=== PATIENT | female | born 1985 | race Caucasian/White ===

== ENCOUNTER → 2017-07-25 | Outpatient (CLI) | payer OTHER ==
[~2017-07-25] MED LIST: HYDR-3533 PO; MMW SWISH-SWAL; PENVK500 PO; SUCR1S PO
== END ==
LOC: HPND 08:14
PROVIDERS: ATTEND Obstetrics & Gynecology
DX: O09.33 Supervision of pregnancy with insufficient antenatal care, third trimester (principal); O34.211 Maternal care for low transverse scar from previous cesarean delivery
CPT/HCPCS: 76816

== ENCOUNTER 2017-07-29 23:42 | Emergency (ER) | payer OTHER ==
--- NOTE | 2017-07-30 00:49 | PD ---
HPI Chief Complaint vaginal spotting/ ? lof Date Seen: Jul 30, 2017 Time Seen: 00:33 Travel History International Travel<30 Days: No Contact w/Intl Traveler<30Days: No Known Affected Area: No History of Present Illness HPI pt. is a 32 y/o @ 35 1/7 weeks present w/ c/o vag spotting and ? lof. pt. states earlier this pm pt. had spotting on paper when wipe. also states has some fluid leak and not sure what it is. +FM, no ctxs. Weeks Gestation: 35 Para: 2 : 3 History Past Medical History Medical History: Denies Significant Hx Obstetric History Obstetric History , cd x 2 Past Surgical History Narrative Surgical cd x 2 Family History Family History: Negative Social History Alcohol Use: No Tobacco Use: No Substance Abuse: No Allergies-Medications (Allergen,Severity, Reaction): Coded Allergies: acetaminophen (Unverified Allergy, Unknown, PT STATES THAT SHE DOES NOT KNOW WHY IN HER CHART, 10/09/16) propoxyphene (Unverified Allergy, Unknown, PT STATES THAT SHE DOES NOT KNOW WHY IN HER CHART, 10/09/16) Home Meds Active Scripts Penicillin V Potassium (Penicillin V Potassium) 500 Mg Tab, 500 MG PO QID for 7 Days, TAB Prov:Nitza Stone MD 10/27/15 Hydrocodone/Acetaminophen 5 mg/325 mg (Lortab 5 mg/325 mg) 1 Tab, 1 TAB PO Q6H Y for PAIN, #10 TAB Prov:Nitza Stone MD 10/27/15 Sucralfate (Carafate 1 Gm/10 Ml Udc) 1 Gm/10 Ml Susp, 1 GM PO Q6HR for 5 Days, ML Take with water on an empty stomach. To reduce the potential of adversely affecting the absorption of other drugs, take other drugs 2 hours prior to Sucralfate. Prov:Nitza Stone MD 10/27/15 Lidocaine/Diphenhy/Alum/Mg/Sim (Magic Mouthwash-Diphenhy Formula) Ml, 5-10 ML SWISH-SWAL Q4-6H Y for PAIN GREATER THAN 5 for 3 Days, ML MAGIC MOUTHWASH CONTAINS 1/3 VISCOUS LIDOCAINE,1/3 MAALOX, AND 1/3 BENADRYL. Prov:Nitza Stone MD 10/27/15 Review of Systems Except as stated in HPI: all other systems reviewed are Neg Physical Exam Narrative GENERAL: Well-nourished, well-developed patient. SKIN: Warm and dry. HEAD: Normocephalic and atraumatic. EYES: No scleral icterus. No injection or drainage. ENT: No nasal drainage noted. Mucous membranes pink. Airway patent. NECK: Supple, trachea midline. No JVD. CARDIOVASCULAR: Regular rate and rhythm without murmurs, gallops, or rubs. RESPIRATORY: Breath sounds equal bilaterally. No accessory muscle use. BREASTS: Bilateral exam showed no masses , no retractions, no nipple discharge. ABDOMEN/GI: Abdomen soft, non-tender, bowel sounds present, no rebound, no guarding Gravid GENITOURINARY: External Genitalia: intact and normal in appearance SSE: no blood, nl vagina cervix: closed/long/high Uterine Contractions: none FHT's: Category: 1 Reactive: + Variability: mod EXTREMITIES: No cyanosis or edema. BACK: Nontender without obvious deformity. No CVA tenderness. NEUROLOGICAL: Awake and alert. Motor and sensory grossly within normal limits. Five out of 5 muscle strength in all muscle groups. Normal speech. Data Data Vital Signs Reviewed: Yes Orders Orders Delimer Clear For Discharge (07/30/17 ) [facility] Medical Record Reviewed: Yes Plan pt. w/o bleeding on exam. condition d/w pt. no srom. pt. to be d/c to home. all ? answered. given precautions for return. f/u as sched. Diagnosis Diagnosis: Primary Impression: Vaginal spotting Additional Impression: 35 weeks gestation of Disposition: DISCHARGE HOME Danie Talamantes Jr., MD Jul 30, 2017 00:49
== END 2017-07-30 00:55 | disposition home or self-care (01) ==
LOC: HOBED 23:42
DX: O26.853 Spotting complicating pregnancy, third trimester (principal); Z3A.35 35 weeks gestation of pregnancy
CPT/HCPCS: 59025

== ENCOUNTER 2017-08-26 11:56 | Inpatient (IN) ==
[2017-08-26] MEDS ORDERED: Phenylephrine/NS 1000 MCG/10ML Syringe IV.PUSH ONE (12:00)
[2017-08-26 12:57] LABS: Baso % (Auto) 0.3 % (0.0-2.0); Eos # (Auto) 0.1 th/mm3 (0.0-0.4); Eos % (Auto) 0.8 % (0.0-4.0); Hematocrit 36.4 % (35.0-46.0); Hemoglobin 12.5 gm/dL (11.6-15.3); Lymph # (Auto) 1.3 th/mm3 (1.0-4.8); Lymph % (Auto) 14.5 % (9.0-44.0); Mean Corpuscular HGB Conc 34.3 % (32.0-36.0); Mean Corpuscular Hemoglobin 30.2 pg (27.0-34.0); Mean Corpuscular Volume 87.9 fL (80.0-100.0); Mean Platelet Volume 9.3 fL (7.0-11.0); Mono # (Auto) 0.6 th/mm3 (0.0-0.9); Mono % (Auto) 6.7 % (0.0-8.0); Neut # (Auto) 7.2 th/mm3 (1.8-7.7); Neut % (Auto) 77.7 % (16.0-70.0); Platelet Count 241 th/mm3 (150-450); Red Blood Count 4.14 mil/mm3 (4.00-5.30); Red Cell Distribution Width 14.5 % (11.6-17.2); White Blood Count 9.3 th/mm3 (4.0-11.0)
[2017-08-26 13:45] LABS: Bacteria,Urine Occasional /hpf; Bilirubin,Urine Negative (Negative); Clarity,Urine Hazy (Clear); Color,Urine Yellow (Yellw/Straw); Glucose,Urine (UA) Negative (Negative); Leukocyte Esterase,Urine Small (Negative); Mucus,Urine Few /lpf (Occasional); Nitrite,Urine Negative (Negative); Specific Gravity,Urine 1.023 (1.002-1.035); Squamous Epithelial Cell,Urine 5 /hpf (0-5)
[2017-08-26] MEDS ORDERED: Citric Acid/Sodium Citrate Liq 30 ML UDC ONE (13:46)
[2017-08-26 13:49] LABS: Amphetamine Screen,Urine Neg (Neg); Barbiturate Screen,Urine Neg (Neg); Cannabinoid Screen,Urine Neg (Neg); Cocaine Screen,Urine Neg (Neg); Opiate Screen,Urine Neg (Neg)
[2017-08-26] MEDS ORDERED: Morphine Sulfate PF Inj 5 MG/10 ML Ampul ONE (13:50)
[2017-08-26] MEDS ORDERED: fentaNYL Citrate Inj 250 MCG/5 ML Ampul ONE (13:50)
[2017-08-26] MEDS ORDERED: Simethicone 80 MG Chew Tablet PO PRN (15:22)
[2017-08-26] MEDS ORDERED: Acetaminophen 325 MG Tablet PO PRN (15:22)
--- NOTE | 2017-08-26 15:49 | MP ---
cc: Omkar Rogers MD DATE OF OPERATION: PREOPERATIVE DIAGNOSIS: Term intrauterine , previous section at 39 weeks, now for repeat section, does not desire . POSTOPERATIVE DIAGNOSIS: Term intrauterine , previous section at 39 weeks, now for repeat section, does not desire . PROCEDURE PERFORMED: Low transverse repeat section. SURGEON: Dr. Rogers. ANESTHESIA: Spinal. PREOPERATIVE NOTE: The patient is a 32-year-old white female, G3, P2, previous section x2, now at 39 weeks, who goes to the [facility] and presents as a scheduled repeat . PROCEDURE: The patient was taken to the operating room. After adequate spinal anesthesia was administered, she was prepped and draped for abdominal surgery. Previous Pfannenstiel incision was excised out and cast off. The incision was carried to the fascia sharply. The fascia was incised laterally and off the rectus muscle. The peritoneal cavity entered sharply in the midline and incision extended superior and inferiorly and stretched open. The bladder blade placed on the lower uterine incision. The visceral peritoneum placed off lower uterine segment and placed on the bladder blade. A transverse hysterotomy was made and extended bluntly bilaterally and clear fluid noted. Baby was male infant, weight 3245 grams, 9 and 9, delivered at 2:28 p.m. There were no complications. Cord blood obtained after delayed cord clamping. Placenta manually extracted. The uterus exteriorized. Hysterotomy closed in running layer of 0 chromic, followed by imbricating suture of same. Hemostasis was achieved and the bladder reapproximated with a running stitch of 2-0 Vicryl. The uterus elevated and blood suctioned from cul-de-sac gutters. The uterus was placed back in the peritoneal cavity. The parietal peritoneum closed in running layer of 2-0 Vicryl. Muscle reapproximated with stick ties of Vicryl and chromic. The fascia closed in running layer of 0 Vicryl. The subcutaneous tissues brought together with a 3-0 plain catgut suture in a running fashion. Skin closed with 3-0 Monocryl subcuticular stitch. A pressure dressing applied with Steri-Strips. ESTIMATED BLOOD LOSS: 500 mL COMPLICATIONS: No complications. COUNTS: Sponge and needle count correct x2. CONDITION: The patient was taken to the recovery room in stable condition. Omkar Rogers MD BLD/TL , 03:29 PM , 03:48 PM
[2017-08-26] MEDS ORDERED: ceFAZolin Inj 2,000 MG in Sodium Chlor 0.9% Inj 80 ML IV.SIG SCH (16:00)
[2017-08-26] MEDS ORDERED: Oxytocin 30 Units/500ml Premix 30 UNITS/500 ML BAG IV.SIG ONE (16:00)
[2017-08-26] MEDS ORDERED: Oxytocin 30 Units/500ml Premix 30 UNITS/500 ML BAG ONE (16:12)
[2017-08-26] MEDS ORDERED: Naloxone Inj 0.4 MG/ML Vial IV.PUSH PRN ×2 (16:52→16:55)
[2017-08-26] MEDS ORDERED: Oxytocin 30 Units/500ml Premix 30 UNITS/500 ML BAG IV.SIG PRN (20:22)
[2017-08-26] MEDS ORDERED: Zolpidem Tartrate 5 MG Tablet PO PRN (21:00)
[2017-08-26] MEDS: ceFAZolin 2 GM Premix Inj 2 GM/50 ML PIGGYBACK IV.SIG SCH (22:21)
[2017-08-26] MEDS: Ibuprofen 600 MG Tablet PO PRN (23:22)
[2017-08-27] MEDS: ceFAZolin 2 GM Premix Inj 2 GM/50 ML PIGGYBACK IV.SIG SCH (05:33)
[2017-08-27] MEDS: Ibuprofen 600 MG Tablet PO PRN ×3 (05:34→17:42)
[2017-08-27 06:04] LABS: Baso % (Auto) 0.1 % (0.0-2.0); Eos % (Auto) 0.1 % (0.0-4.0); Hematocrit 29.8 % (35.0-46.0); Hemoglobin 10.1 gm/dL (11.6-15.3); Lymph # (Auto) 1.2 th/mm3 (1.0-4.8); Mean Corpuscular HGB Conc 33.9 % (32.0-36.0); Mean Corpuscular Hemoglobin 29.9 pg (27.0-34.0); Mean Corpuscular Volume 88.2 fL (80.0-100.0); Mean Platelet Volume 9.6 fL (7.0-11.0); Mono % (Auto) 8.2 % (0.0-8.0); Neut # (Auto) 9.9 th/mm3 (1.8-7.7); Neut % (Auto) 81.6 % (16.0-70.0); Platelet Count 212 th/mm3 (150-450); Red Blood Count 3.38 mil/mm3 (4.00-5.30); Red Cell Distribution Width 14.5 % (11.6-17.2); White Blood Count 12.2 th/mm3 (4.0-11.0)
--- NOTE | 2017-08-27 07:29 | P.PNOB ---
Subjective Post op day: 1 Interval history: Postop day 1 Patient doing well after yesterday, she is normal advancement of diet and ambulation, showed no sign of pulmonary thromboembolic complication, her baby is doing well as morning she is bottlefeeding Objective Vital Signs/I&O: Vital Signs 08/26/17 12:22 08/26/17 12:26 08/26/17 12:30 Temperature 98.3 F Pulse Rate 80 Respiratory Rate 17 Blood Pressure 127/89 08/26/17 15:20 08/26/17 15:31 08/26/17 15:45 Temperature 97.5 F L Pulse Rate 64 61 66 Respiratory Rate 18 12 14 Blood Pressure 112/62 155/55 H 113/57 L 08/26/17 16:01 08/26/17 16:03 08/26/17 16:17 Temperature 97.7 F Pulse Rate 68 65 Respiratory Rate 15 12 Blood Pressure 126/69 116/63 08/26/17 17:03 08/26/17 19:50 08/26/17 20:00 Temperature 97.8 F 97.6 F 97.6 F Pulse Rate 74 76 76 Respiratory Rate 16 18 16 Blood Pressure 120/73 108/78 108/78 08/27/17 00:00 08/27/17 04:00 Temperature 98.0 F 97.8 F Pulse Rate 74 68 Respiratory Rate 16 17 Blood Pressure 114/76 110/77 Intake & Output 08/26/17 08/27/17 08/27/17 18:59 06:59 18:59 Intake Total 50 / 50 Balance 50 / 50 Weight 95 kg Intake: IV 50 / 50 Ancef 2 GM Premix Inj 2 gm In 50 / 50 50 ml @ 100 mls/hr IV.SIG Q8H [facility] Rx#:[id number] Other: Weight On Admission 95 kg Result Diagrams: 08/27/17 05:10 Objective Remarks: GENERAL: Well-nourished, well-developed patient. CARDIOVASCULAR: Regular rate and rhythm without murmurs, gallops, or rubs. RESPIRATORY: Breath sounds equal bilaterally. No accessory muscle use. ABDOMEN/GI: Abdomen soft, non-tender, bowel sounds present. Incision: Clean, dry and intact. Fundus: Firm, non-tender at umbilicus. GENITOURINARY: Light to moderate bleeding. EXTREMITIES: No cyanosis or edema, non-tender, without signs of DVT. Medications and IVs: Active Medications Acetaminophen (Tylenol) 650 mg PO Q6H PRN PRN Reason: PAIN SCALE 1 TO 2 Diphenhydramine HCl (Benadryl) 50 mg PO Q6H PRN PRN Reason: MILD TO MODERATE ITCHING Stop: 08/27/17 14:00 Diphenhydramine HCl (Benadryl Inj) 25 mg IV.PUSH Q6H PRN PRN Reason: MILD TO MODERATE ITCHING Stop: 08/27/17 14:00 Diphtheria/Pertussis/Tetanus Vacc (Boostrix Vaccine Inj) 0.5 ml IM .ONCE ONE Stop: 08/27/17 16:01 Lactated Ringer's (Lr 1000 Ml Inj) 1,000 mls @ 150 mls/hr IV.CONT .Q6H40M [facility] Last Admin: 08/26/17 15:43 Dose: 150 mls/hr Lactated Ringer's (Lr 1000 Ml Inj) 1,000 mls @ 100 mls/hr IV.CONT .Q10H [facility] Stop: 08/27/17 16:21 Last Admin: 08/26/17 22:20 Dose: 100 mls/hr Oxytocin (Pitocin 30 Units/Ns 500 Ml Premix) 30 units in 500 mls @ 100 mls/hr IV.SIG PRN PRN PRN Reason: Heavy bleeding Stop: 08/27/17 20:21 Ketorolac Tromethamine (Toradol Inj) 60 mg IM ONCE PRN PRN Reason: SEE LABEL COMMENTS Stop: 08/27/17 15:21 Last Admin: 08/26/17 15:52 Dose: 60 mg Measles/Mumps/Rubella Vaccine Live (M-M-R Ii Vaccine Inj) 0.5 ml SQ .ONCE ONE Stop: 08/27/17 16:01 Miscellaneous Information ([facility] Information) 1 each OTHER UNSCH PRN PRN Reason: SEE LABEL COMMENTS Stop: 08/27/17 14:00 Miscellaneous Information ([facility] [place] [facility] Nursing Information) 1 each OTHER UNSCH PRN PRN Reason: SEE LABEL COMMENTS Stop: 08/27/17 14:00 Naloxone HCl (Narcan Inj) 0.4 mg IV.PUSH UNSCH PRN PRN Reason: SEE LABEL COMMENTS Stop: 08/27/17 14:00 Ondansetron HCl (Zofran Odt) 4 mg PO Q6H PRN PRN Reason: NAUSEA OR VOMITING Oxycodone/Acetaminophen (Percocet 5/325 Mg) 1 tab PO Q4H PRN PRN Reason: PAIN SCALE 3 TO 5 Last Admin: 08/27/17 05:34 Dose: 1 tab Oxycodone/Acetaminophen (Percocet 5/325 Mg) 2 tab PO Q4H PRN PRN Reason: PAIN SCALE 6 TO 10 Last Admin: 08/27/17 01:34 Dose: 2 tab Senna/Docusate Sodium (Tiffanie-Colace) 2 tab PO Q12H PRN PRN Reason: CONSTIPATION Simethicone (Mylicon Chew) 80 mg PO QID PRN PRN Reason: FLATULENCE Sodium Chloride (Ns Flush) 2 ml IV.FLUSH BID BIB Sodium Chloride (Ns Flush) 2 ml IV.FLUSH PRN PRN PRN Reason: FLUSH AFTER USING IV ACCESS Zolpidem Tartrate (Ambien) 5 mg PO HS PRN PRN Reason: INSOMNIA Assessment and Plan - Diagnosis (1) delivery delivered Code(s): O82 - Encounter for delivery without indication Status: Acute - Plan Plan at this patient is progressive postop care with advancement of diet and ambulation We will likely remove bandage tomorrow and examine the incision line Baby will likely need circumcision prior to discharge
[2017-08-27] MEDS: Senna/Docusate Sodium 8.6/50 MG Tablet PO PRN (11:22)
[2017-08-27] MEDS ORDERED: Diphtheria/Tetanus/Pertussis Vaccine Inj 0.5 ML Syringe IM ONE (16:00)
[2017-08-27] MEDS ORDERED: Measles/Mumps/Rubella Vaccine Inj 0.5 ML Vial SQ ONE (16:00)
[2017-08-28] MEDS: Ibuprofen 600 MG Tablet PO PRN ×2 (00:43→06:23)
[2017-08-28] MEDS: Senna/Docusate Sodium 8.6/50 MG Tablet PO PRN (00:43)
--- NOTE | 2017-08-28 08:00 | P.PNOB ---
Subjective Post op day: 2 Interval history: Postoperative day #2 AFVSS overnight. Incision not draining. Decreased lochia. Denies dysuria. No breast tenderness. She is feeding the baby via Appetite good. No nausea or vomiting. Positive flatus/bowel movement. Ambulating well. Denies calf pain or shortness of breath. Otherwise, she is doing well this morning and has no other complaints. Objective Vital Signs/I&O: Vital Signs 08/27/17 07:58 08/27/17 08:00 08/27/17 11:25 Temperature 98.5 F Pulse Rate 75 Respiratory Rate 20 20 20 Blood Pressure 107/70 08/27/17 11:27 08/27/17 12:30 08/27/17 12:54 Temperature 97.8 F Pulse Rate 89 Respiratory Rate 20 20 20 Blood Pressure 117/74 08/27/17 15:30 08/27/17 20:00 Temperature 98.2 F 98.2 F Pulse Rate 78 84 Respiratory Rate 20 18 Blood Pressure 114/72 120/77 Result Diagrams: 08/27/17 05:10 Objective Remarks: GENERAL: Well-nourished, well-developed patient. CARDIOVASCULAR: Regular rate and rhythm without murmurs, gallops, or rubs. RESPIRATORY: Breath sounds equal bilaterally. No accessory muscle use. ABDOMEN/GI: Abdomen soft, non-tender, bowel sounds present. Incision: Clean, dry and intact. Fundus: Firm, non-tender at umbilicus. GENITOURINARY: Light to moderate bleeding. EXTREMITIES: No cyanosis or edema, non-tender, without signs of DVT. Medications and IVs: Active Medications Acetaminophen (Tylenol) 650 mg PO Q6H PRN PRN Reason: PAIN SCALE 1 TO 2 Lactated Ringer's (Lr 1000 Ml Inj) 1,000 mls @ 150 mls/hr IV.CONT .Q6H40M [facility] Last Admin: 08/26/17 15:43 Dose: 150 mls/hr Ondansetron HCl (Zofran Odt) 4 mg PO Q6H PRN PRN Reason: NAUSEA OR VOMITING Oxycodone/Acetaminophen (Percocet 5/325 Mg) 1 tab PO Q4H PRN PRN Reason: PAIN SCALE 3 TO 5 Last Admin: 08/27/17 05:34 Dose: 1 tab Oxycodone/Acetaminophen (Percocet 5/325 Mg) 2 tab PO Q4H PRN PRN Reason: PAIN SCALE 6 TO 10 Last Admin: 08/28/17 06:24 Dose: 2 tab Senna/Docusate Sodium (Tiffanie-Colace) 2 tab PO Q12H PRN PRN Reason: CONSTIPATION Last Admin: 08/28/17 00:43 Dose: 2 tab Simethicone (Mylicon Chew) 80 mg PO QID PRN PRN Reason: FLATULENCE Sodium Chloride (Ns Flush) 2 ml IV.FLUSH BID BIB Sodium Chloride (Ns Flush) 2 ml IV.FLUSH PRN PRN PRN Reason: FLUSH AFTER USING IV ACCESS Zolpidem Tartrate (Ambien) 5 mg PO HS PRN PRN Reason: INSOMNIA Assessment and Plan - Plan 32y/o female who is POD#2 s/p CXN -Continue routine care. -Percocet and Motrin PRN pain. -Encouraged OOB. Advised pelvic rest for 6 wks. Will need a f/u appt. in 1 wk for incision check. -D/c likely today wdw Dr. Lopez - Attending Attestation I personally saw and examined patient and participated in all dye decision making. Continue routine and postoperative care. Incision healing well with out erythema or exudate. Wound precautions given. SMS
== END 2017-08-28 17:21 | disposition home or self-care (01) ==
LOC: H2E 11:56 → H1EA 16:42
PROVIDERS: ADMIT Obstetrics & Gynecology Maternal & Fetal Medicine; ATTEND Obstetrics & Gynecology Maternal & Fetal Medicine